=== PATIENT | female | born 1965 ===

== ENCOUNTER 2017-09-25 09:27 | Inpatient (IN) | payer SELFPAY ==
[2017-09-25] MEDS ORDERED: Sodium Chloride 0.9% 1,000 ML IV ONE (09:51)
--- NOTE | 2017-09-25 10:21 | C.PDOC ---
History Of Present Illness 51 year old female presents to the ED complaining of abdominal pain for 3 days status post eating food that contained meat. Associated symptoms include subjective fever, vomiting, and diarrhea with constant abdominal pain. She states she drank Peptobismol and tried other home remedies but symptoms persist. She denies any urinary symptoms. She also reports she fell 4 days ago. Denies LOC, or any other injuries. Time Seen by Provider: 09/25/17 09:40 Chief Complaint (Nursing): Abdominal Pain History Per: Patient History/Exam Limitations: no limitations Onset/Duration Of Symptoms: Days Current Symptoms Are (Timing): Still Present Context: Food Location Of Pain/Discomfort: RLQ Radiation Of Pain To:: None Quality Of Discomfort: "Pain" Associated Symptoms: Fever, Nausea, Vomiting, Diarrhea. denies: Constipation Past Medical History Reviewed: Historical Data, Nursing Documentation, Vital Signs Vital Signs: Last Vital Signs Temp 97.9 F 09/25/17 12:23 Pulse 75 09/25/17 12:23 Resp 18 09/25/17 12:23 BP 114/74 09/25/17 12:23 Pulse Ox 99 09/25/17 12:52 - Medical History PMH: No Chronic Diseases Other Surgeries: hysterectomy Family History: States: No Known Family Hx - Social History Hx Alcohol Use: No Hx Substance Use: No - Immunization History Hx Tetanus Toxoid Vaccination: No Hx Influenza Vaccination: No Hx Pneumococcal Vaccination: No Review Of Systems Constitutional: Positive for: Fever Gastrointestinal: Positive for: Nausea, Vomiting, Abdominal Pain, Diarrhea Genitourinary: Negative for: Dysuria, Hematuria, Vaginal Discharge Physical Exam - Physical Exam Appears: Non-toxic, No Acute Distress Skin: Warm, Dry Head: Atraumatic, Normacephalic Eye(s): bilateral: Normal Inspection Nose: Normal Oral Mucosa: Moist Neck: Supple Chest: Symmetrical Cardiovascular: Rhythm Regular, No Murmur Respiratory: Normal Breath Sounds, No Rales, No Rhonchi, No Wheezing Gastrointestinal/Abdominal: Bowel Sounds, Soft, Tenderness (RLQ tenderness ), No Distention, Rebound Back: Normal Inspection, No CVA Tenderness Extremity: Other (ecchymosis to right knee) Extremity: Bilateral: Atraumatic, Normal Color And Temperature, Normal ROM Neurological/Psych: Oriented x3, Normal Speech Gait: Steady ED Course And Treatment - Laboratory Results Result Diagrams: 09/25/17 10:25 08/04/18 10:25 Lab Interpretation: No Acute Changes ECG: Interpreted By Me, Viewed By Me ECG Rhythm: Sinus Rhythm ECG Interpretation: No Acute Changes Rate From EC O2 Sat by Pulse Oximetry: 99 (RA) Pulse Ox Interpretation: Normal - CT Scan/US CT ABD/PEL Other Rad Studies (CT/US): Read By Radiologist, Radiology Report Reviewed CT/US Interpretation: Accession No. : [id number]. Patient Name / ID : JESSICA DIAS / [id number]. Exam Date : 09/25/2017 11:34:06 ( Approved ). Study Comment : Sex / Age : F / 51Y. Creator : Sulaiman George MD. Dictator : Sulaiman George MD. [employer] Consultant : Fruit Dryer : Sulaiman George MD. Approver2 : Report Date : 09/25/2017 12:00:59. My Comment : . Date of service: 09/25/2017. PROCEDURE: CT Abdomen and Pelvis with contrast. HISTORY: RLQ abd pain, r.o appy. COMPARISON: None. TECHNIQUE: Following the intravenous administration of iodinated contrast material, a CT examination of the abdomen and pelvis performed from the domes of the diaphragms to the symphysis pubis with reformatted datasets provided in axial, sagittal and coronal planes. Oral contrast was not administered as per referring physician request. Contrast dose: Visipaque 320, 100 cc. Radiation dose: Total exam DLP = 444.69 mGy-cm. This CT exam was performed using one or more of the following dose reduction techniques: Automated exposure control, adjustment of the mA and/or kV according to patient size, and/or use of iterative reconstruction technique. FINDINGS: LOWER THORAX: Limited bilateral basilar dependent atelectasis appreciated. LIVER: Unremarkable. No gross lesion or ductal dilatation. GALLBLADDER AND BILE DUCTS: Unremarkable. PANCREAS: Unremarkable. No gross lesion or ductal dilatation. SPLEEN: Unremarkable. ADRENALS: Unremarkable. No mass. KIDNEYS AND URETERS: There is a 3.5 cm simple cyst exophytic off the upper pole right kidney medially with the bilateral kidneys otherwise unremarkable appearing. No hydronephrosis. No solid mass. VASCULATURE: Unremarkable. No aortic aneurysm. BOWEL: Unremarkable. No obstruction. No gross mural thickening. APPENDIX: A dilated inflamed appendix is appear appreciated with mild periappendiceal reaction compatible with appendicitis. No abscess or free intrarenal gas or other fluid collection. PERITONEUM: Unremarkable. No free fluid. No free air. LYMPH NODES : Unremarkable. No enlarged lymph nodes. BLADDER: Unremarkable. REPRODUCTIVE : Prior hysterectomy. BONES: No acute fracture. OTHER FINDINGS: None. IMPRESSION: Findings compatible with unruptured appendicitis. 3.5 cm simple cyst right kidney. Findings discussed with DON Riley 09/25/2017 at 12 noon with written down read back verification. Medical Decision Making Medical Decision Making: Impression: Abdominal pain to RLQ Plan - CT Abd/Pel - Labs - Toradol 30mg IVP - Zofran 4mg IVP - IV fluids - UA Progress: 1049 All labs reviewed, no leukocytosis or electrolyte abnormality; urine still pending [address] Yañez calls ED with critical finding of acute appendicitis. See full report 1207 [facility] surgery residents and consult surgery national sales Dr Long [address] Long . Advised to order EKG and CXR for medical clearance. 1235 Dr Long accepted patient to his service and will take patient to the OR. Requests starting Zosyn and keep patient NPO Disposition - Disposition Disposition: HOSPITALIZED Disposition Time: 12:35 Condition: STABLE - POA Present On Arrival: None - Clinical Impression Clinical Impression: Acute appendicitis - PA / MAINTENANCE PERSON / Resident Statement MD/DO has reviewed & agrees with the documentation as recorded. - Scribe Statement The provider has reviewed the documentation as recorded by the Michael Cole Decision To Admit - Pt Status Changed To: Hospital Disposition Of: Inpatient - Admit Certification Admit to Inpatient:: After my assessment, the patient will require hospitalization for at least two midnights. This is because of the severity of symptoms shown, intensity of services needed, and/or the medical risk in this patient being treated as an outpatient. - InPatient: Physician Admission Certification:: patient with acute appendicitis will require surgical consult and treatment, IV antibiotics and furher management inpatient - . Bed Request Type: Regular Admitting Physician: Kevin Long Patient Diagnosis: Acute appendicitis
[2017-09-25 10:29] LABS: BASO % 0.4 % (0.0-2.0); EOS # 0.1 K/uL (0.0-0.7); EOS % 1.8 % (0.0-4.0); HEMOGLOBIN 12.4 g/dL (11.0-16.0); LYMPH % 24.6 % (20.0-40.0); MEAN CELL VOLUME 85.4 fL (81.0-99.0); MEAN CORPUSCULAR HEMOGLOBIN 29.2 pg (27.0-31.0); MEAN CORPUSCULAR HGB CONC 34.2 g/dL (33.0-37.0); MEAN PLATELET VOLUME 8.5 fL (7.2-11.7); MONO # 0.6 K/uL (0.0-0.8); MONO % 6.9 % (0.0-10.0); NEUT # 5.4 K/uL (1.8-7.0); NEUT % 66.3 % (50.0-75.0); RBC 4.24 Mil/uL (3.80-5.20); RED CELL DISTRIBUTION WIDTH 13.4 % (11.5-14.5); WHITE BLOOD COUNT 8.2 K/uL (4.8-10.8)
[2017-09-25] MEDS ORDERED: Sodium Chloride 0.9% 1,000 ML ONE (10:29)
[2017-09-25 10:47] LABS: ALB/GLOB RATIO 1.2 (1.0-2.1); ALBUMIN 4.3 g/dL (3.5-5.0); ALT/SGPT 43 U/L (9-52); AST/SGOT 22 U/L (14-36); BLOOD UREA NITROGEN 9 mg/dL (7-17); CALCIUM 9.3 mg/dl (8.6-10.4); GFR AFRICAN-AMERICAN > 60; GFR NON-AFRICAN AMERICAN > 60; LIPASE 51 U/L (23-300)
[2017-09-25] MEDS ORDERED: Iodixanol 320 MG/ML 100 ML BOTTLE IV ONE (11:13)
[2017-09-25 11:27] LABS: SQUAMOUS EPITHIAL 1 /hpf (0-5); URINE BILIRUBIN NEGATIVE (NEGATIVE); URINE BLOOD NEGATIVE (NEGATIVE); URINE CLARITY Clear (Clear); URINE COLOR Straw (YELLOW); URINE GLUCOSE (UA) NORMAL (Normal); URINE LEUKOCYTE ESTERASE NEG Leu/uL (Negative); URINE PROTEIN NEGATIVE (NEGATIVE); URINE UROBILINOGEN NORMAL mg/dL (0.2-1.0)
[2017-09-25] MEDS ORDERED: Piperacillin/Tazobact 3.375 gm 100 ML IV STA (12:02)
--- NOTE | 2017-09-25 12:02 | CT ---
Date of service: 09/25/2017 PROCEDURE: CT Abdomen and Pelvis with contrast HISTORY: RLQ abd pain, r.o appy COMPARISON: None. TECHNIQUE: Following the intravenous administration of iodinated contrast material, a CT examination of the abdomen and pelvis performed from the domes of the diaphragms to the symphysis pubis with reformatted datasets provided in axial, sagittal and coronal planes. Oral contrast was not administered as per referring physician request. Contrast dose: Visipaque 320, 100 cc Radiation dose: Total exam DLP = 444.69 mGy-cm. This CT exam was performed using one or more of the following dose reduction techniques: Automated exposure control, adjustment of the mA and/or kV according to patient size, and/or use of iterative reconstruction technique. FINDINGS: LOWER THORAX: Limited bilateral basilar dependent atelectasis appreciated. LIVER: Unremarkable. No gross lesion or ductal dilatation. GALLBLADDER AND BILE DUCTS: Unremarkable. PANCREAS: Unremarkable. No gross lesion or ductal dilatation. SPLEEN: Unremarkable. ADRENALS: Unremarkable. No mass. KIDNEYS AND URETERS: There is a 3.5 cm simple cyst exophytic off the upper pole right kidney medially with the bilateral kidneys otherwise unremarkable appearing. No hydronephrosis. No solid mass. VASCULATURE: Unremarkable. No aortic aneurysm. BOWEL: Unremarkable. No obstruction. No gross mural thickening. APPENDIX: A dilated inflamed appendix is appear appreciated with mild periappendiceal reaction compatible with appendicitis. No abscess or free intrarenal gas or other fluid collection. PERITONEUM: Unremarkable. No free fluid. No free air. LYMPH NODES: Unremarkable. No enlarged lymph nodes. BLADDER: Unremarkable. REPRODUCTIVE: Prior hysterectomy. BONES: No acute fracture. OTHER FINDINGS: None. IMPRESSION: Findings compatible with unruptured appendicitis. 3.5 cm simple cyst right kidney. Findings discussed with DON Riley 09/25/2017 at 12 noon with written down read back verification.
[2017-09-25] MEDS ORDERED: Piperacillin/Tazobact 3.375 gm 100 ML IVPB ONE (12:09)
[2017-09-25] MEDS ORDERED: HYDROmorphone 0.5 mg/0.5 ml ISec IVP PRN (14:03)
--- NOTE | 2017-09-25 14:27 | CP.PCM.HP ---
History of Present Illness - History of Present Illness History of Present Illness: General surgery H & P note for Dr. Lio Jackman, PGY-2 Pt S & E at bedside at 1300. Swedish speaking only, [facility] - number on consent form. 51F w/no sig PMH admitted for RLQ abdominal pain x 3 days. Pt reports onset of N & subjective fevers 3 days [employer] with subsequent onset of periumbilical abdominal pain that relocated to the RLQ over time. Pain is severe, constant, non radiating, mildly alleviated by Excedrin & tea, worsened by juice. Admits to diarrhea (green, 3 x daily for past 3 days), N & V (nb, bilious emesis 3 x daily for past 3 days), bloating, headache, decreased appetite due to pain, weakness , numbess of hands (chronic). Denies constipation, cough, rhinorrhea, sore throat, other complaints. Last meal- 10 am on day of evaluation- sandwich & juice In ED- afebrile, no leukocytosis. CT ab w/dilated appendix, mild periappendiceal reaction compatible with appendicitis. No abscess or free intraperitoneal gas or other fluid collection. PMH: Denies PSH: Hysterectomy All: NKDA SH: Denies ETOH, tobacco or illicit drug use FH: Sister has DM PMD: In [place] Present on Admission - Present on Admission Any Indicators Present on Admission: No History of DVT/PE: No History of Uncontrolled Diabetes: No Urinary Catheter: No Decubitus Ulcer Present: No Review of Systems - Review of Systems All systems: reviewed and no additional remarkable complaints except - Constitutional Constitutional: Fever, Weakness. absent: Chills - EENT Eyes: absent: Change in Vision Ears: absent: Dizziness Nose/Mouth/Throat: absent: Sore Throat - Cardiovascular Cardiovascular: absent: Chest Pain - Respiratory Respiratory: absent: Cough - Gastrointestinal Gastrointestinal: Abdominal Pain, Bloating, Change in Bowel Habits, Diarrhea, Nausea, Vomiting. absent: Constipation, Hematemesis, Hematochezia - Genitourinary Genitourinary: absent: Change in Urinary Stream, Flank Pain, Hematuria - Musculoskeletal Musculoskeletal: Numbness (chronic in hands). absent: Back Pain - Integumentary Integumentary: absent: Rash - Psychiatric Psychiatric: Change in Appetite (decreased) Past Patient History - Past Social History Smoking Status: Never Smoked - PSYCHIATRIC Hx Substance Use: No - SURGICAL HISTORY Hx Surgeries: Yes Meds Allergies/Adverse Reactions: Allergies Allergy/AdvReac Type Severity Reaction Status Date / Time No Known Allergies Allergy Unverified 09/25/17 09:34 Physical Exam - Constitutional Appears: Non-toxic, No Acute Distress - Head Exam Head Exam: ATRAUMATIC, NORMAL INSPECTION, NORMOCEPHALIC - Eye Exam Eye Exam: EOMI, Normal appearance - ENT Exam ENT Exam: Mucous Membranes Moist, Normal Exam - Neck Exam Neck exam: Positive for: Full Rom, Normal Inspection - Respiratory Exam Respiratory Exam: Clear to Auscultation Bilateral, NORMAL BREATHING PATTERN. absent: Rales, Rhonchi, Wheezes - Cardiovascular Exam Cardiovascular Exam: Tachycardia, REGULAR RHYTHM, +S1, +S2 - GI/Abdominal Exam GI & Abdominal Exam: Guarding, Normal Bowel Sounds, Soft, Tenderness (RLQ, + McBurney's, + Rovsings sign, negative obturator sign). absent: Distended, Firm , Hernia, Rebound, Rigid Additional comments: Well healed incision - suprapubic to infraumbilical in midline - Extremities Exam Extremities exam: Positive for: normal inspection. Negative for: tenderness - Neurological Exam Neurological exam: Alert, CN II-XII Intact, Oriented x3 - Psychiatric Exam Psychiatric exam: Normal Affect, Normal Mood - Skin Skin Exam: Dry, Intact, Normal Color, Warm Results - Vital Signs Recent Vital Signs: Last Vital Signs Temp 97.9 F 09/25/17 12:23 Pulse 75 09/25/17 12:23 Resp 18 09/25/17 12:23 BP 114/74 09/25/17 12:23 Pulse Ox 99 09/25/17 12:52 - Labs Result Diagrams: 09/25/17 10:25 09/25/17 10:25 Labs: Laboratory Results - last 24 hr 09/25/17 09/25/17 09/25/17 10:25 10:25 11:03 WBC 8.2 RBC 4.24 Hgb 12.4 Hct 36.3 MCV 85.4 MCH 29.2 MCHC 34.2 RDW 13.4 Plt Count 207 MPV 8.5 Neut % (Auto) 66.3 Lymph % (Auto) 24.6 [place] % (Auto) 6.9 Eos % (Auto) 1.8 Baso % (Auto) 0.4 Neut # (Auto) 5.4 Lymph # (Auto) 2.0 [place] # (Auto) 0.6 Eos # (Auto) 0.1 Baso # (Auto) 0.0 Sodium 145 Potassium 3.5 L Chloride 105 Carbon Dioxide 27 Anion Gap 16 BUN 9 Creatinine 0.8 Est GFR ( Amer) > 60 Est GFR (Non-Af Amer) > 60 Random Glucose 131 H Calcium 9.3 Total Bilirubin 0.6 AST 22 ALT 43 Alkaline Phosphatase 80 Total Protein 7.9 Albumin 4.3 Globulin 3.6 Albumin/Globulin Ratio 1.2 Lipase 51 Urine Color Straw Urine Clarity Clear Urine pH 6.0 Ur Specific [place] 1.005 Urine Protein Negative Urine Glucose (UA) Normal Urine Ketones Negative Urine Blood Negative Urine Nitrate Negative Urine Bilirubin Negative Urine Urobilinogen Normal Ur Leukocyte Esterase Neg Urine WBC (Auto) 2 Urine RBC (Auto) < 1 Ur Squamous Epith Cells 1 Assessment & Plan - Assessment and Plan (Free Text) Assessment: 51F w/acute appendicitis Plan: Admit to med surg VS Q4H Ambulates/up ad patel NPO Pain control Zosyn LR@ 100 Zofran PRN GI/DVT ppx Plan for OR today Consent in chart DW attending Augustina, PGY-2 - Date & Time Date: 09/25/17 Time: 13:15
[2017-09-25 15:19] LABS: PROTHROMBIN TIME 11.2 SECONDS (9.7-12.2)
[2017-09-25] MEDS: Lactated Ringer's 1,000 ML IV SCH (16:34)
[2017-09-25] MEDS ORDERED: Lidocaine/Epinephrine 1% 1:100000 10 ML IJ ONE ×2 (17:30→17:31)
[2017-09-25] MEDS ORDERED: Bupivacaine 0.25% 20 ML INJ IJ ONE (17:30)
[2017-09-25] MEDS ORDERED: Propofol 10 mg/ml Inj (20 ML) ONE (17:42)
--- NOTE | 2017-09-25 18:01 | RAD ---
Date of service: 09/25/2017 HISTORY: ADMIT REQUIREMENT COMPARISON: No prior. FINDINGS: LUNGS: Limited history volume with crowding of bronchovascular markings noted at the bases bilaterally. No definite alveolitis bilaterally. PLEURA: No significant pleural effusion identified, no pneumothorax apparent. CARDIOVASCULAR: Normal. OSSEOUS STRUCTURES: No significant abnormalities. VISUALIZED UPPER ABDOMEN: Normal. OTHER FINDINGS: None. IMPRESSION: No definitive acute cardiopulmonary disease appreciable. Crowding of the bronchovascular markings is noted at the bilateral bases.
[2017-09-25] MEDS ORDERED: Succinylcholine Chloride 20 mg/ml Syr (5 ml) IV ONE (18:07)
[2017-09-25] MEDS ORDERED: Rocuronium 10 mg/ml (5 ml) ONE (18:07)
[2017-09-25] MEDS: Piperacill/Tazo 3.375gm in Dex 3.375 GM/50 ML BAG IVPB SCH (18:30)
[2017-09-25] MEDS ORDERED: Neostigmine Methylsulfate 3mg/3ml Syringe IV ONE (18:44)
[2017-09-25] MEDS: HYDROmorphone 0.5 mg/0.5 ml ISec IVP PRN ×2 (19:18→19:42)
[2017-09-25] MEDS ORDERED: HYDROmorphone 0.5 mg/0.5 ml ISec ONE (19:21)
--- NOTE | 2017-09-25 19:21 | PCM.SURG1 ---
Surgeon's Initial Post Op Note - Surgeon's Notes Surgeon: Dr. Long Ed Physicians: Dr. Preciado PGY-4 Type of Anesthesia: General Endo, Local Anesthesia Administered By: Dr. Dalton Pre-Operative Diagnosis: Acute appendicitis Operative Findings: Acute appendicitis Post-Operative Diagnosis: Acute appendicitis, adhesions Operation Performed: Laparoscopic appendectomy, lysis of adhesions Specimen/Specimens Removed: appendix Estimated Blood Loss: EBL {In ML}: 10 Blood Products Given: N/A Drains Used: No Drains Post-Op Condition: Fair Date of Surgery/Procedure: 09/25/17 Time of Surgery/Procedure: 19:21
[2017-09-26] MEDS: Piperacill/Tazo 3.375gm in Dex 3.375 GM/50 ML BAG IVPB SCH ×4 (00:07→18:18)
[2017-09-26] MEDS: Lactated Ringer's 1,000 ML IV SCH ×3 (00:15→10:07)
--- NOTE | 2017-09-26 02:42 | OP ---
Copied To: Kevin Long MD Attending MD: Kevin Long MD PROCEDURE DATE: 09/25/2017 PREOPERATIVE DIAGNOSES: 1. Acute appendicitis. 2. Status post hysterectomy with possible postoperative adhesions. POSTOPERATIVE DIAGNOSES: 1. Acute appendicitis. 2. Postoperative adhesions. PROCEDURES DONE: 1. Laparoscopic appendectomy. 2. Laparoscopic mobilization of the right colon and cecum. ANESTHESIA: General endotracheal tube anesthesia. SURGEON: The procedure was done by Kevin nicolas MD PEDICAB DRIVER: Jennifer Preciado DO, PGY4 Resident. ESTIMATED BLOOD LOSS: Around 10 mL. DRAINS: None. PATHOLOGY: Appendix was sent to Pathology. COMPLICATIONS: None. INTRAOPERATIVE FINDINGS: The patient had acute appendicitis with completely adhesed cecum to the pelvic wall laterally. DESCRIPTION OF PROCEDURE: On intraoperative steps, this is a 51-year-old female who was diagnosed with acute appendicitis and patient was consented for laparoscopic appendectomy, possible open, possible lysis of exacerbation, brought to the OR, placed supine on the operating table. After induction of the anesthesia, the abdomen was prepped and draped in the usual sterile fashion. The left upper quadrant incision was made. Using Visiport technique, peritoneal cavity was entered. Patient did not have any postoperative adhesion, but patient had a right lower quadrant adhesion due to appendicitis. Another 12-mm port and Sd port was placed, and a 5-mm port was placed in the suprapubic region. The appendix was retracted. The paracecal adhesion was lysed and cecum was mobilized in order to reach the base of the appendix and mesoappendix, and the mesoappendix was resected with harmonic scalpel. Base of the appendix was resected with a NINFA and appendix was taken in an EndoCatch bag, taken out through the umbilical port site and was sent off the table for pathology. There was a proper hemostasis in each and every part of the procedure. After the proper hemostasis, all the ports were taken out under vision. Pneumo was deflated. Umbilical port site was closed in two layers, the fascia with 2-0 Monocryl, skin with 4-0 Monocryl and the patient was extubated in the OR and sent to the postanesthesia care unit in stable condition. Kevin Long MD MARTHA
[2017-09-26 09:28] VITALS: RESP 18
--- NOTE | 2017-09-26 10:54 | CP.PCM.DIS ---
Provider - Provider Date of Admission: 09/25/17 12:35 Attending physician: Kevin Long MD Consults: none Time Spent in preparation of Discharge (in minutes): 30 Hospital Course - Lab Results Lab Results: Most Recent Lab Values WBC 8.2 K/uL (4.8-10.8) 09/25/17 10:25 RBC 4.24 Mil/uL (3.80-5.20) 09/25/17 10:25 Hgb 12.4 g/dL (11.0-16.0) 09/25/17 10:25 Hct 36.3 % (34.0-47.0) 09/25/17 10:25 MCV 85.4 fL (81.0-99.0) 09/25/17 10:25 MCH 29.2 pg (27.0-31.0) 09/25/17 10:25 MCHC 34.2 g/dL (33.0-37.0) 09/25/17 10:25 RDW 13.4 % (11.5-14.5) 09/25/17 10:25 Plt Count 207 K/uL (130-400) 09/25/17 10:25 MPV 8.5 fL (7.2-11.7) 09/25/17 10:25 Neut % (Auto) 66.3 % (50.0-75.0) 09/25/17 10:25 Lymph % (Auto) 24.6 % (20.0-40.0) 09/25/17 10:25 [place] % (Auto) 6.9 % (0.0-10.0) 09/25/17 10:25 Eos % (Auto) 1.8 % (0.0-4.0) 09/25/17 10:25 Baso % (Auto) 0.4 % (0.0-2.0) 09/25/17 10:25 Neut # (Auto) 5.4 K/uL (1.8-7.0) 09/25/17 10:25 Lymph # (Auto) 2.0 K/uL (1.0-4.3) 09/25/17 10:25 [place] # (Auto) 0.6 K/uL (0.0-0.8) 09/25/17 10:25 Eos # (Auto) 0.1 K/uL (0.0-0.7) 09/25/17 10:25 Baso # (Auto) 0.0 K/uL (0.0-0.2) 09/25/17 10:25 PT 11.2 SECONDS (9.7-12.2) 09/25/17 15:07 INR 1.0 09/25/17 15:07 APTT 31 SECONDS (21-34) 09/25/17 15:07 Sodium 145 mmol/L (132-148) 09/25/17 10:25 Potassium 3.5 mmol/L (3.6-5.2) L 09/25/17 10:25 Chloride 105 mmol/L (98-107) 09/25/17 10:25 Carbon Dioxide 27 mmol/L (22-30) 09/25/17 10:25 Anion Gap 16 (10-20) 09/25/17 10:25 BUN 9 mg/dL (7-17) 09/25/17 10:25 Creatinine 0.8 mg/dL (0.7-1.2) 09/25/17 10:25 Est GFR ( Amer) > 60 09/25/17 10:25 Est GFR (Non-Af Amer) > 60 09/25/17 10:25 Random Glucose 131 mg/dL (65-105) H 09/25/17 10:25 Calcium 9.3 mg/dl (8.6-10.4) 09/25/17 10:25 Total Bilirubin 0.6 mg/dL (0.2-1.3) 09/25/17 10:25 AST 22 U/L (14-36) 09/25/17 10:25 ALT 43 U/L (9-52) 09/25/17 10:25 Alkaline Phosphatase 80 U/L (38-126) 09/25/17 10:25 Total Protein 7.9 g/dL (6.3-8.3) 09/25/17 10:25 Albumin 4.3 g/dL (3.5-5.0) 09/25/17 10:25 Globulin 3.6 gm/dL (2.2-3.9) 09/25/17 10:25 Albumin/Globulin Ratio 1.2 (1.0-2.1) 09/25/17 10:25 Lipase 51 U/L (23-300) 09/25/17 10:25 Urine Color Straw (YELLOW) 09/25/17 11:03 Urine Clarity Clear (Clear) 09/25/17 11:03 Urine pH 6.0 (5.0-8.0) 09/25/17 11:03 Ur Specific [place] 1.005 (1.003-1.030) 09/25/17 11:03 Urine Protein Negative mg/dL (NEGATIVE) 09/25/17 11:03 Urine Glucose (UA) Normal mg/dL (Normal) 09/25/17 11:03 Urine Ketones Negative mg/dL (NEGATIVE) 09/25/17 11:03 Urine Blood Negative (NEGATIVE) 09/25/17 11:03 Urine Nitrate Negative (NEGATIVE) 09/25/17 11:03 Urine Bilirubin Negative (NEGATIVE) 09/25/17 11:03 Urine Urobilinogen Normal mg/dL (0.2-1.0) 09/25/17 11:03 Ur Leukocyte Esterase Neg [place]/uL (Negative) 09/25/17 11:03 Urine WBC (Auto) 2 /hpf (0-5) 09/25/17 11:03 Urine RBC (Auto) < 1 /hpf (0-3) 09/25/17 11:03 Ur Squamous Epith Cells 1 /hpf (0-5) 09/25/17 11:03 Urine HCG, Qual Negative (NEGATIVE) 09/25/17 15:07 - Hospital Course Hospital Course: 51F w/no PMH was admitted for RLQ abdominal pain x 3 days. Pt had associated nausea, vomiting, and diarrhea. CT showed dilated appendix, mild periappendiceal reaction compatible with appendicitis. Pt was taken to the OR that same day, 09/25/17 for laparoscopic appendectomy for removal of an acutely inflammed appendix. Pt was discharged home the next morning to follow up with Dr. long in his office. Discharge Exam - Head Exam Head Exam: ATRAUMATIC, NORMAL INSPECTION, NORMOCEPHALIC Discharge Plan - Follow Up Plan Condition: GOOD Disposition: HOME/ ROUTINE Patient education suggested?: Yes Additional Instructions: Leave dressings in place for 5 days, after that may remove top white dressings. Leave white steri strips in place. They will fall off on their own over time. May take Percocet as prescribed for pain with Colace (stool softener) Avoid heavy lifting for 4 weeks. Do not swim or take a bath for 2 weeks. Follow up with Dr. Long in 1-2 weeks. call to make appointment. Referrals: Kevin Long MD [Staff Provider] -
[2017-09-26 11:06] LABS: MEAN CELL VOLUME 84.4 fL (81.0-99.0); MEAN CORPUSCULAR HGB CONC 34.7 g/dL (33.0-37.0); MONO # 0.4 K/uL (0.0-0.8)
[2017-09-26 11:12] LABS: BASO % 0.5 % (0.0-2.0); EOS # 0.1 K/uL (0.0-0.7); EOS % 2.1 % (0.0-4.0); LYMPH # 1.2 K/uL (1.0-4.3); LYMPH % 16.8 % (20.0-40.0); MEAN CORPUSCULAR HEMOGLOBIN 29.3 pg (27.0-31.0); MEAN PLATELET VOLUME 8.8 fL (7.2-11.7); MONO % 5.8 % (0.0-10.0); NEUT # 5.4 K/uL (1.8-7.0); NEUT % 74.8 % (50.0-75.0); RBC 4.43 Mil/uL (3.80-5.20); RED CELL DISTRIBUTION WIDTH 13.1 % (11.5-14.5); WHITE BLOOD COUNT 7.2 K/uL (4.8-10.8)
[2017-09-26 11:16] LABS: BLOOD UREA NITROGEN 8 mg/dL (7-17); CALCIUM 9.1 mg/dl (8.6-10.4); GFR AFRICAN-AMERICAN > 60; GFR NON-AFRICAN AMERICAN > 60
[2017-09-26 16:25] VITALS: BP 107/65; PULSE 93; TEMP 98.5; O2SAT 97
[2017-09-26] MEDS ORDERED: Oxycodone/Acetaminophen 5/325 mg Tab PO PRN (18:17)
--- NOTE | 2017-09-27 12:12 | CARD ---
APPROVED REPORT Date of service: 09/25/2017 EKG Measurement Heart [id number] <Conclusion> Normal sinus rhythm Low voltage QRS Cannot rule out Anterior infarct, age undetermined Abnormal ECG
== END 2017-09-26 20:30 | disposition home or self-care (01) | DRG 337 ==
LOC: C.ER 09:27 → C.9E 12:35 → C.6T 13:00
PROVIDERS: ADMIT Surgery Surgical Critical Care; ATTEND Surgery Surgical Critical Care
PROC: 0DNH4ZZ Release Cecum, Percutaneous Endoscopic Approach (ICD-10-PCS; 2017-09-25)
PROC: 0DTJ4ZZ Resection of Appendix, Percutaneous Endoscopic Approach (ICD-10-PCS; principal; 2017-09-25 17:58)
DX: K35.80 Unspecified acute appendicitis (principal); K66.0 Peritoneal adhesions (postprocedural) (postinfection); W19.XXXA Unspecified fall, initial encounter; Z90.710 Acquired absence of both cervix and uterus; Z83.3 Family history of diabetes mellitus

== ENCOUNTER 2017-09-30 09:45 | Emergency (ER) | payer SELFPAY ==
[2017-09-30 10:06] VITALS: BMI 29.2
[2017-09-30 10:11] VITALS: TEMP 98.1; O2SAT 98
--- NOTE | 2017-09-30 11:34 | C.PDOC ---
History Of Present Illness 51 y/o female s/p appendectomy on 09/25/17, discharged 3 days ago presents to ED with c/o subjective fever for 2 days described as hot/cold flashes. Patient denies abdominal pain, vomiting, diarrhea, back pain or any other complaints at this time. Patient is asymptomatic at ED. Time Seen by Provider: 09/30/17 11:10 Chief Complaint (Nursing): Abnormal Skin Integrity History Per: Patient History/Exam Limitations: no limitations Onset/Duration Of Symptoms: Days Current Symptoms Are (Timing): Still Present Past Medical History Reviewed: Historical Data, Nursing Documentation, Vital Signs Vital Signs: Last Vital Signs Temp 98.1 F 09/30/17 10:09 Pulse 88 09/30/17 11:45 Resp 20 09/30/17 11:45 BP 132/78 09/30/17 11:45 Pulse Ox 98 09/30/17 11:52 - Medical History PMH: Gastritis Surgical History: Appendectomy - [facility] Procedures RELEASE CECUM, PERCUTANEOUS ENDOSCOPIC APPROACH (09/25/17) RESECTION OF APPENDIX, PERCUTANEOUS ENDOSCOPIC APPROACH (09/25/17) Family History: States: No Known Family Hx - Social History Hx Alcohol Use: No Hx Substance Use: No - Immunization History Hx Tetanus Toxoid Vaccination: No Hx Influenza Vaccination: No Hx Pneumococcal Vaccination: No Review Of Systems Constitutional: Positive for: Fever. Negative for: Chills Gastrointestinal: Negative for: Nausea, Vomiting, Abdominal Pain, Diarrhea Skin: Negative for: Rash Neurological: Negative for: Weakness, Numbness Physical Exam - Physical Exam Appears: Well, Non-toxic, No Acute Distress Skin: Warm, Dry, No Rash Head: Atraumatic, Normacephalic Eye(s): bilateral: Normal Inspection Oral Mucosa: Moist Neck: Supple Cardiovascular: Rhythm Regular Respiratory: Normal Breath Sounds, No Rales, No Rhonchi, No Wheezing Gastrointestinal/Abdominal: Soft, No Tenderness, No Guarding, No Rebound, Other (well healing 4 incisions to abdomen. no redness or swelling) Back: No CVA Tenderness Neurological/Psych: Oriented x3, Normal Speech, Normal Cognition ED Course And Treatment O2 Sat by Pulse Oximetry: 98 (RA) Pulse Ox Interpretation: Normal Medical Decision Making Medical Decision Making: Patient states she feel medication is giving her fever and stopped antibiotics 2 days ago. Patient advised Levaquin must continue to be taken and Percocet could be cause of symptoms. As the wound looks normal with no evidence of cellulitis. Currently patient is asymptomatic and has no further complaints. Disposition - Disposition Referrals: [facility] at [facility] [Outside] Disposition: HOME/ ROUTINE Disposition Time: 11:34 Condition: GOOD Additional Instructions: Follow up with the medical clinic within 1-2 days for wound check. Return if worsened. Instructions: Surgical Wound (DC) Forms: [employer] (Indonesian) Print Language: BARBADIAN - Clinical Impression Clinical Impression: Visit for wound check - PA / LINE INSTALLER / Resident Statement MD/DO has reviewed & agrees with the documentation as recorded. - Scribe Statement The provider has reviewed the documentation as recorded by the Scribe Chrissy Bradley All medical record entries made by the [place]ibjhon were at my direction and personally dictated by me. I have reviewed the chart and agree that the record accurately reflects my personal performance of the history, physical exam, medical decision making, and the department course for this patient. I have also personally directed, reviewed, and agree with the discharge instructions and disposition.
[2017-09-30 12:04] VITALS: BP 132/78; PULSE 88; RESP 20
== END 2017-09-30 12:03 | disposition home or self-care (01) ==
LOC: C.ER 09:45
DX: Z48.00 Encounter for change or removal of nonsurgical wound dressing (principal)